=== PATIENT | male | born 1995 | race Caucasian/White ===

== ENCOUNTER 2022-09-10 20:13 | Emergency (ER) | payer OTHER, SELFPAY ==
[2022-09-10 20:57] VITALS: BP 124/67; PULSE 60; RESP 18; TEMP 36.6; O2SAT 97
[2022-09-10 21:46] LABS: Influenza A QL RT-PCR Negative (Negative); Influenza B QL RT-PCR Negative (Negative); SARS-CoV-2 RNA PCR Negative
--- NOTE | 2022-09-11 01:11 | ED.GENADULT ---
HPI - General Adult General Chief complaint: Upper Respiratory Infection Stated complaint: flu like s/s Time Seen by Provider: 09/11/22 00:14 History of Present Illness HPI narrative: Is a 27-year-old male presenting to ED with 5 days of viral illness. Patient says that Tuesday he started to develop chills, dry cough, congestion and in fatigue. He started to feel better Tuesday was well enough to go to work. Last night he started to feel congested again attempted to go to work but was feeling dizzy. Patient had not eaten. Patient denies nausea vomiting or diarrhea. He is not vaccinated against COVID or flu. He has no sick contacts at home. The patient has also started a new diet and is eating approximately a 1000 calories per day. He has been having some success losing approximately 2 lb a week for the last 10 weeks. patient is losing weight because he wants to be a boxer he thinks that if he boxed people who weighed 200 lb he would get knocked out. He denies any history of anorexia or bulimia. He denies any psychiatric history like anxiety or depression. Denies SI or HI per Patient denies chest pain, palpitations, difficulty breathing, abdominal pain, urinary symptoms. Review of Systems Review of Systems: CONSTITUTIONAL: Denies night sweats. EYES: No eye pain ENT: Denies rhinorrhea CARDIOVASCULAR: Denies palpitations RESPIRATORY: Denies hemoptysis GASTROINTESTINAL: Denies hematemesis GENITOURINARY: Denies hematuria. SKIN: Denies rash MUSCULOSKELETAL: Denies myalgia. NEUROLOGIC: Denies weakness. PSYCHIATRIC: Denies delusions [facility] Family History Family History (Updated 08/26/10 @ 15:04 by DOCTOR UNKNOWN) Other Family history of cardiovascular disease Hypertension Social History Social History Alcohol intake: never Exam Narrative: APPEARANCE: No apparent distress. patient is well-appearing Head atraumatic. EYES: PERRLA/EOMI, NOSE: Normal no drainage NECK: Supple, Trachea midline RESPIRATORY: CTAB, No increased work of breathing. CARDIOVASCULAR: S1S2 appreciated, no dizziness when the patient stands up ABDOMINAL: Soft, nontender, nondistended, MUSCULOSKELETAl: No obvious deformities NEURO: Alert. Moving 4/4 extremities SKIN:: Warm, dry. Normal color PSYCHIATRIC: Normal affect Course Vital Signs Vital signs: Vital Signs Temperature 97.8 F 09/10/22 20:57 Pulse Rate 60 09/10/22 20:57 Respiratory Rate 18 09/10/22 20:57 Blood Pressure 124/67 09/10/22 20:57 Pulse Oximetry 97 09/10/22 20:57 Oxygen Delivery Room Air 09/10/22 20:57 Temperature 97.8 F 09/10/22 20:57 Pulse Rate 60 09/10/22 20:57 Respiratory Rate 18 09/10/22 20:57 Blood Pressure 124/67 09/10/22 20:57 Pulse Oximetry 97 09/10/22 20:57 Oxygen Delivery Room Air 09/10/22 20:57 Medical Decision Making MDM Narrative Medical decision making narrative: this is a 27-year-old male presenting ED with 5 days of viral syndrome. He is well-appearing with normal vital signs. I think his symptoms are exacerbated by his severely restrictive caloric intake. I spoke with him at length about healthy weight loss and diet and dieting. glucose was benign normal limits. COVID flu were both negative. Patient is feeling better and is ready to go home. He has been instructed to take Motrin Tylenol for symptoms, drink plenty of fluids and eat enough food for a person of his size. Vital Signs Vital Signs: Vital Signs Temperature 97.8 F 09/10/22 20:57 Pulse Rate 60 09/10/22 20:57 Respiratory Rate 18 09/10/22 20:57 Blood Pressure 124/67 09/10/22 20:57 Pulse Oximetry 97 09/10/22 20:57 Oxygen Delivery Room Air 09/10/22 20:57 Temperature 97.8 F 09/10/22 20:57 Pulse Rate 60 09/10/22 20:57 Respiratory Rate 18 09/10/22 20:57 Blood Pressure 124/67 09/10/22 20:57 Pulse Oximetry 97 09/10/22 20:57 Oxygen Delivery Room Air 09/10/22 20:57 Lab Data Labs: Lab
[2022-09-11 01:32] LABS: Glucose Point of Care 99 mg/dl (65-105)
== END 2022-09-11 01:30 | disposition home or self-care (01) ==
PROVIDERS: Emergency Medicine; Emergency Provider Emergency Medicine
DX: J06.9 Acute upper respiratory infection, unspecified (principal); E46 Unspecified protein-calorie malnutrition; Z68.25 Body mass index [BMI] 25.0-25.9, adult; Z20.822 Contact with and (suspected) exposure to COVID-19; Z28.310 Unvaccinated for COVID-19
CPT/HCPCS: 82948; 87502; 99283; C9803; U0003; U0005